=== PATIENT | male | born 1940 | race Caucasian/White ===

== ENCOUNTER 2018-02-14 20:34 | Inpatient (IN) ==
[2018-02-14] MEDS ORDERED: 0.9 % Sodium Chloride 1,000 ML IVC ONE ×2 (20:49→22:02)
[2018-02-14] MEDS ORDERED: cefTRIAXone 1,000 MG in Water for inj. (sterile) 20 ML 10 ML IVP ONE (20:49)
--- NOTE | 2018-02-14 21:02 | Emergency Department Note ---
Disposition Clinical Impression: Sepsis, Elevated lactic acid level, Fall, UTI (urinary tract infection) Disposition: Admitted As Inpatient Condition: Fair Time of Disposition: 23:44 General Adult HPI - General Chief complaint: ED Fall Stated complaint: Fall/ Incontinent Time Seen by Provider: 02/14/18 20:44 Source: patient, family Limitations: no limitations Nursing Notes Reviewed: Yes Vital Signs Reviewed: Yes - History of Present Illness HPI Narrative: 77-year-old male presents from home with and family bedside for evaluation of multiple complaints. He has been feeling unwell today and had weakness in his legs causing him to slowly fall to her knee. He did not hit his head and did not lose consciousness. He was incontinent of urine and he has not had a bowel movement today. He did take a laxative yesterday with no improvement in symptoms. Patient is a history of prostate cancer with metastasis. 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 This was surgically removed and he has recovered lower extremity function. His current baseline is that he is not currently incontinent of bowel or bladder. No abdominal surgical history. ROS: Positive: As above Negative for fever, chills, nausea, vomiting, chest pains, palpitations, shortness of breath, abdominal pain, lower extremity numbness or tingling, saddle anesthesia Pain Scale: 8 - Related Data Home Medications Medication Instructions Recorded Confirmed Tiotropium [Spiriva] 18 mcg IH DAILY 02/15/16 02/15/18 Calcium Carbonate/Vitamin D3 1 tab PO DAILY 02/15/18 02/15/18 [Calcium 600-Vit D3 800 Tablet] Centrum Silver Tablet 1 tab PO DAILY 02/15/18 02/15/18 DULoxetine [Cymbalta] 30 mg PO DAILY 02/15/18 02/15/18 Gabapentin [Neurontin] 100 mg PO TID 02/15/18 02/15/18 OxyCODONE Immed Rel [Roxicodone 10 10 mg PO Q6H PRN 02/15/18 02/15/18 MG] Patient Taking Own Medication 02/15/18 RX: Triamterene/HCTZ 37.5/25mg 1 tab PO DAILY 02/15/18 02/15/18 [Dyazide] RX: predniSONE [PredniSONE] 5 mg PO BID 02/15/18 02/15/18 Tamsulosin HCl [Flomax] 0.4 mg PO DAILY 02/15/18 02/15/18 Allergies Allergy/AdvReac Type Severity Reaction Status Date / Time No Known Allergies Allergy Verified 02/15/16 10:07 All systems ED: reviewed and negative except as stated. Review of Systems: As Per HPI Past Medical History - Past Medical History Medical history: Reports: cancer, CHF, COPD, coronary artery disease, hyperlipidemia, hypertension, kidney stones, myocardial infarction Surgical history: Reports: other Psychiatric history: Reports: no psych history - Social History Smoking Status: Former smoker Alcohol use: Reports: none Drug use: Reports: none Physical Exam Vital Signs Reviewed General: Patient is alert, oriented, and in no acute distress. Patient smells of stale urine. Head: atraumatic, normocephalic Eye: normal appearance,no scleral icterus, no conjunctival injection ENT: mucous membranes moist, normal external ear exam Neck: normal inspection, trachea midline, full ROM Chest: normal inspection, symmetric chest rise Respiratory: Good respiratory effort. Bilateral breath sounds are clear without wheezing, crackles, or rhonchi. Cardiovascular: Regular rate and rhythm. No clicks, rubs, gallops, or murmors. Normal heart sounds. Abdomen: Bowel sounds present normoactive. Abdomen is soft, nondistended, and nontender. No guarding or rebound. Musculoskeletal: Spontaneously moving all extremities. Skin: warm, dry, intact. Neuro: GCS 15. No focal neurologic deficits observed. Psych: Patient's affect is appropriate for situation. - General Limitations: no limitations General appearance: alert, in no apparent distress Course Course Narrative: Concern the is patient septic - tachycardic, elevated lactate. He is tachycardic and hypotensive. Sepsis workup initiated. We will begin empiric Rocephin against presumed UTI. Patient's heart rate has improved. I cannot attribute this to IV fluids as his heart rate was normal other tachycardic just prior to beginning his first liter bolus. Patient's blood pressure also improved at that time. Even so, given his normal renal function and elevated lactic acid of 5.1 we will provide 2 L of IV fluids. Given his age and cardiac history, we will monitor pulmonary status. Urinalysis is concerning for UTI. Culture is pending. Blood cultures drawn. E mpiric Rocephin provided. The patient does have a history of metastatic prostate cancer, he is not currently undergoing chemotherapy or radiation therapy. He is undergoing hormone therapy which the family describes as medication to remove testosterone as well as continued and continuous prednisone. His abdominal exam is unremarkable. He is no history of abdominal surgeries. Though he notes hard bowel movements, he does have bowel movements and is passing flatus. Because of this, have held on CT abdomen and pelvis at this time. I discussed the above with the patient and family bedside. The patient does not want to be admitted, family and myself been able to convince him to accept admi ssion. I discussed the above with the admitting hospitalist, Dr. Segura, who agrees to accept the patient for continued evaluation monitoring of sepsis from urinary source. Vital Signs Temperature 97.9 F 02/14/18 20:40 Pulse Rate 132 02/14/18 20:40 Respiratory Rate 16 02/14/18 20:40 Blood Pressure 96/67 02/14/18 20:40 O2 Sat by Pulse Oximetry 92 02/14/18 20:40 Temperature 97.9 F 02/14/18 20:57 Pulse Rate 99 02/14/18 23:02 Respiratory Rate 18 02/14/18 23:02 Blood Pressure 104/76 02/14/18 23:02 O2 Sat by Pulse Oximetry 95 02/14/18 23:02 Oxygen Delivery Oxygen Delivery Nasal Cannula Medical Decision Making - Lab Data Result diagrams: 02/14/18 21:04 02/14/18 21:04 Lab Results 02/14/18 02/14/18 02/14/18 Range/Units 21:04 21:04 21:04 WBC 11.0 (4.3-11.1) K/mcL RBC 3.58 L (4.19-5.50) M/mcL Hgb 14.0 (12.9-16.9) g/dL Hct 40.5 (37.5-50.1) % MCV 113.1 H (83.0-100.0) fL MCH 39.1 H (28.0-33.3) pg MCHC 34.6 (31.6-35.5) g/dL RDW 13.3 (11.5-14.5) % Plt Count 122 L (140-400) K/mcL MPV 10.3 (9.4-12.4) fL Immature Gran % Test Not Performed Seg Neutrophils % 82.0 % Band Neutrophils % 12.0 H (0-4) % Lymphocytes % 2.0 % Monocytes % 4.0 % Eosinophils % Test Not Performed Basophils % Test Not Performed Neutrophils # 10.3 H (1.6-8.9) K/mcL Lymphocytes # 0.2 L (0.6-4.6) K/mcL Monocytes # 0.4 (0.0-1.3) K/mcL Eosinophils # Test Not Performed Basophils # Test Not Performed Platelet Estimate Slight Decrease L (Normal) Polychromasia 1+ A (Not Present) PT 11.1 (9.4-12.1) Seconds INR 1.0 APTT 29.0 (26.0-36.0) Seconds Sodium 137 (136-145) mEq/L Potassium 4.0 (3.5-5.1) mEq/L Chloride 100 (98-107) mEq/L Carbon Dioxide 27 (23-29) mEq/L BUN 21 (8-23) mg/dL Creatinine 1.21 (0.70-1.30) mg/dL Est GFR ( Amer) > 60 (> 60) Est GFR (Non-Af Amer) 58 L (> 60) BUN/Creatinine Ratio 17 (6-26) Glucose 175 H (70-105) mg/dL Calculated Osmolality 291 (280-300) Lactic Acid (0.5-2.2) mmol/L Calcium 10.2 (8.6-10.3) mg/dL Phosphorus 4.4 (2.7-4.5) mg/dL Magnesium 2.3 (1.6-2.6) mg/dL Total Bilirubin 1.3 H (0.3-1.0) mg/dL Direct Bilirubin 0.3 H (0.0-0.2) mg/dL Indirect Bilirubin 1.0 (0.0-1.2) mg/dL AST 16 (13-39) Units/L ALT 12 (7-52) Units/L Alkaline Phosphatase 97 (34-104) Units/L Troponin I < 0.03 (< 0.04) ng/mL Serum Total Protein 7.1 (6.4-8.9) g/dL Albumin 4.2 (3.5-5.7) g/dL Globulin 2.9 (2.4-3.5) g/dL Albumin/Globulin Ratio 1.4 (1.1-2.2) Urine Color (Yellow) Urine Clarity (Clear) Urine pH (5.0-8.0) pH Units Ur Specific [place] (1.010-1.025) Urine Protein (Neg-Trace) mg/dL Urine Glucose (UA) (Normal) mg/dL Urine Ketones (Negative) mg/dL Urine Blood (Negative) Urine Nitrite (Negative) Urine Bilirubin (Negative) Urine Urobilinogen (Normal) mg/dL Ur Leukocyte Esterase (Negative) Urine Microscopic RBC (0-3) per hpf Urine Microscopic WBC (0-3) per hpf Ur Squamous Epith Cells (None-Few) per lpf Amorphous Sediment (Few) Urine Bacteria (None-Few) per hpf Hyaline Casts (None-Few) per lpf Ur Culture Indicated? (NO) 02/14/18 02/14/18 Range/Units 21:04 21:50 WBC (4.3-11.1) K/mcL RBC (4.19-5.50) M/mcL Hgb (12.9-16.9) g/dL Hct (37.5-50.1) % MCV (83.0-100.0) fL MCH (28.0-33.3) pg MCHC (31.6-35.5) g/dL RDW (11.5-14.5) % Plt Count (140-400) K/mcL MPV (9.4-12.4) fL Immature Gran % Seg Neutrophils % % Band Neutrophils % (0-4) % Lymphocytes % % Monocytes % % Eosinophils % Basophils % Neutrophils # (1.6-8.9) K/mcL Lymphocytes # (0.6-4.6) K/mcL Monocytes # (0.0-1.3) K/mcL Eosinophils # Basophils # Platelet Estimate (Normal) Polychromasia (Not Present) PT (9.4-12.1) Seconds INR APTT (26.0-36.0) Seconds Sodium (136-145) mEq/L Potassium (3.5-5.1) mEq/L Chloride (98-107) mEq/L Carbon Dioxide (23-29) mEq/L BUN (8-23) mg/dL Creatinine (0.70-1.30) mg/dL Est GFR ( Amer) (> 60) Est GFR (Non-Af Amer) (> 60) BUN/Creatinine Ratio (6-26) Glucose (70-105) mg/dL Calculated Osmolality (280-300) Lactic Acid 5.1 H* (0.5-2.2) mmol/L Calcium (8.6-10.3) mg/dL Phosphorus (2.7-4.5) mg/dL Magnesium (1.6-2.6) mg/dL Total Bilirubin (0.3-1.0) mg/dL Direct Bilirubin (0.0-0.2) mg/dL Indirect Bilirubin (0.0-1.2) mg/dL AST (13-39) Units/L ALT (7-52) Units/L Alkaline Phosphatase (34-104) Units/L Troponin I (< 0.04) ng/mL Serum Total Protein (6.4-8.9) g/dL Albumin (3.5-5.7) g/dL Globulin (2.4-3.5) g/dL Albumin/Globulin Ratio (1.1-2.2) Urine Color Yellow (Yellow) Urine Clarity Cloudy A (Clear) Urine pH 7.0 (5.0-8.0) pH Units Ur Specific [place] 1.013 (1.010-1.025) Urine Protein Trace (Neg-Trace) mg/dL Urine Glucose (UA) Normal (Normal) mg/dL Urine Ketones Negative (Negative) mg/dL Urine Blood Small H (Negative) Urine Nitrite Positive A (Negative) Urine Bilirubin Negative (Negative) Urine Urobilinogen Normal (Normal) mg/dL Ur Leukocyte Esterase Large H (Negative) Urine Microscopic RBC 3-5 H (0-3) per hpf Urine Microscopic WBC 50-100 H (0-3) per hpf Ur Squamous Epith Cells None Seen (None-Few) per lpf Amorphous Sediment Few (Few) Urine Bacteria Many H (None-Few) per hpf Hyaline Casts None Seen (None-Few) per lpf Ur Culture Indicated? YES A (NO) Critical Care Time Critical Care Time: Yes Total Critical Care Time: 35 Attestation: hypotension, tachycardia, fluid rescuscitation given; Attestation Statement - Attestation Attestation: Dr. Caballero note: Patient was seen in conjunction with resident Dr. Leal. Please see his charting for complete documentation. Assessment [id number] time with the patient and agree with patient's treatment and disposition. Progressive weakness for 2-3 days; End stage /metastatic prostate CA; labs / urine reviewed; Hypotension anad elevated HR resolved prior to admission s/p IV fluid resuscitation; iv abx given; lactic acid level noted; urinary retention resolved s/p boyd
[2018-02-14 21:23] LABS: Hematocrit 40.5 % (37.5-50.1); Mean Corpuscular HGB Conc 34.6 g/dL (31.6-35.5); Mean Corpuscular Hemoglobin 39.1 pg (28.0-33.3); Mean Corpuscular Volume 113.1 fL (83.0-100.0); Mean Platelet Volume 10.3 fL (9.4-12.4); Monocytes # 0.4 K/mcL (0.0-1.3); Platelet Count 122 K/mcL (140-400); Red Blood Count 3.58 M/mcL (4.19-5.50); Red Cell Distribution Width 13.3 % (11.5-14.5)
[2018-02-14 21:32] LABS: Prothrombin Time 11.1 Seconds (9.4-12.1)
[2018-02-14 21:45] LABS: Alanine Aminotransferase 12 Units/L (7-52); Albumin 4.2 g/dL (3.5-5.7); Albumin/Globulin Ratio 1.4 (1.1-2.2); Alkaline Phosphatase 97 Units/L (34-104); Aspartate Amino Transferase 16 Units/L (13-39); BUN/Creatinine Ratio 17 (6-26); Bilirubin,Direct 0.3 mg/dL (0.0-0.2); Bilirubin,Total 1.3 mg/dL (0.3-1.0); Blood Urea Nitrogen 21 mg/dL (8-23); Calcium 10.2 mg/dL (8.6-10.3); Carbon Dioxide 27 mEq/L (23-29); Chloride 100 mEq/L (98-107); Globulin 2.9 g/dL (2.4-3.5); Glucose 175 mg/dL (70-105); Magnesium 2.3 mg/dL (1.6-2.6); Osmolality,Calculated 291 (280-300); Phosphorous 4.4 mg/dL (2.7-4.5); Sodium 137 mEq/L (136-145); Total Protein 7.1 g/dL (6.4-8.9); Troponin I < 0.03 ng/mL (< 0.04); eGFR For Non-African Americans 58 (> 60)
[2018-02-14 21:59] LABS: Bilirubin,Urine Negative (Negative); Blood,Urine Small (Negative); Clarity,Urine Cloudy (Clear); Color,Urine Yellow (Yellow); Glucose,Urine (UA) Normal (Normal); Ketones,Urine Negative (Negative); Leukocyte Esterase,Urine Large (Negative); Nitrite,Urine Positive (Negative); Protein,Urine Trace mg/dL (Neg-Trace); Specific Gravity,Urine 1.013 (1.010-1.025); Urobilinogen,Urine Normal (Normal)
[2018-02-14 22:01] LABS: Bacteria,Urine Many per hpf (None-Few); Hyaline Casts,Urine None Seen per lpf (None-Few); Squamous Epithelial Cell,Urine None Seen per lpf (None-Few); WBC,Urine 50-100 per hpf (0-3)
[2018-02-14 22:23] LABS: Lymphocytes # 0.2 K/mcL (0.6-4.6); Neutrophils # 10.3 K/mcL (1.6-8.9); Platelet Estimate Slight Decrease (Normal); Polychromasia 1+ (Not Present)
[2018-02-14 22:40] LABS: Amorphous Sediment,Urine Few (Few)
--- NOTE | 2018-02-14 23:38 | Internal Med History&Physical ---
Date of Encounter: 02/15/18 Time of Encounter: 23:38 Internal Medicine - H&P: HPI Chief complaint: weakness History of present illness: Siva Dockery is a 76-year-old male with an extensive smoking history, COPD and has prostate cancer with osseous metastases resulting in lower extremity paralysis due to cord compression that was subsequently surgically r esected with recuperation of his motor function currently on androgen deprivation therapy. He is brought in today by family with a complaint of weakness. He states that he was using his walker to the bathroom and he felt his legs become weak so he supported himself and slowly made his way down to the floor. He did not hit his head or lose consciousness is any time. He denies having fever or chills but does complain of dysuria over this past week. On arrival to the ER he was borderline hypotensive and tachycardic with adequate response to fluid resuscitation. He was also seen to have a lactate level of 5.1. His UA showed positive nitrites and large leukocyte esterase with 50-100 white blood cells and bacteria seen on microscopy. He is now admitted for further care. At this time he reports feeling much better than upon initial arrival. He does complain of abdominal bloating and distention that his son stating that he has not had an adequate bowel movement in 5 days responding p oorly to [id number] laxatives and suppositories. Past Med Surg Social Fam HX - Past Medical History Medical history: cancer, CHF, COPD, coronary artery disease, hyperlipidemia, hypertension, kidney stones, myocardial infarction Psychiatric history: no psych history - Past Surgical History Surgical History: other Additional surgical history: heart cath - Social History Smoking Status: Former smoker Alcohol use: none Drug use: none - Family History Mother Name: steven charlton Living Status: Hx Family Cancer: No (throat, breast) Internal Medicine - H&P: Meds Tiotropium [Spiriva] 18 mcg IH DAILY 02/15/16 [History] DULoxetine [Cymbalta] 30 mg PO DAILY 02/15/18 [History] Tamsulosin HCl [Flomax] 0.4 mg PO DAILY 02/15/18 [History] Allergy/AdvReac Type Severity Reaction Status Date / Time No Known Allergies Allergy Verified 02/15/16 10:07 All Systems PM: A 10-system review of systems was performed and is negative for pertinent findings except as documented above in the HPI. - Constitutional Vitals: Temp Pulse Resp BP Pulse Ox 97.9 F 99 18 104/76 95 02/14/18 20:57 02/14/18 23:02 02/14/18 23:02 02/14/18 23:02 02/14/18 23:02 Exam: Vitals: Reviewed General: Well-developed and well-appearing in no acute distress. Skin: Warm and supple with a large ecchymotic lesion noted on the lateral aspect of his right arm. HEENT: Moist mucous membranes. No conjunctivae pallor. Neck: No lymphadenopathy. No JVD. No carotid bruits. No palpable thyroid. Chest: Normal thoracic expansion. Wheezing in both lung jimenez. Heart: Normal S1 & S2; rhythmic. No rubs or murmurs. Abdomen: Distended, soft and non-tender to palpation. No peritoneal reaction. Extremities: No clubbing, cyanosis or edema. No calf tenderness. Normal distal pulses. Neurological: Awake, alert and oriented to person, place and time. No focal def icits. Psych: Affect appropriate. Internal Med - H&P Results - Labs CBC & Chem 7: 02/14/18 21:04 02/14/18 21:04 Labs: Short CBC 02/14/18 Range/Units 21:04 WBC 11.0 (4.3-11.1) K/mcL Hgb 14.0 (12.9-16.9) g/dL Hct 40.5 (37.5-50.1) % Plt Count 122 L (140-400) K/mcL Neutrophils # 10.3 H (1.6-8.9) K/mcL BMP 02/14/18 21:04 Sodium 137 Potassium 4.0 Chloride 100 Carbon Dioxide 27 BUN 21 Creatinine 1.21 Glucose 175 H Calcium 10.2 Cardiac Enzymes 02/14/18 Range/Units 21:04 Troponin I < 0.03 (< 0.04) ng/mL Liver Function 02/14/18 Range/Units 21:04 Total Bilirubin 1.3 H (0.3-1.0) mg/dL Direct Bilirubin 0.3 H (0.0-0.2) mg/dL AST 16 (13-39) Units/L ALT 12 (7-52) Units/L Alkaline Phosphatase 97 (34-104) Units/L Albumin 4.2 (3.5-5.7) g/dL Urine 02/14/18 Range/Units 21:50 Urine Color Yellow (Yellow) Urine Clarity Cloudy A (Clear) Urine pH 7.0 (5.0-8.0) pH Units Ur Specific [place] 1.013 (1.010-1.025) Urine Protein Trace (Neg-Trace) mg/dL Urine Glucose (UA) Normal (Normal) mg/dL - Impressions ITS Impressions Chest X-Ray 02/14/18 20:50 IMPRESSION: 1. No focal consolidation. 2. 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 D/ / Omar Conner / Omar Conner Interpreting Provider: Omar Conner Head CT 02/14/18 20:50 IMPRESSION: No acute intracranial abnormality. Senescent changes including chronic microvascular change. D/ / India Boone MD / India Boone MD Interpreting Provider: India Boone MD - Assessment and plan (1) UTI (urinary tract infection) Current Visit: Yes Status: Acute Assessment and plan: No prior microbiology here. No suggestion of prior MDR organisms therefore continuing ceftriaxone 1gr daily for now is adequate pending finalization of culture. CT imaging to be done for constipation will also visualize system for any new anomalies. Qualifiers: Urinary tract infection type: site unspecified Hematuria presence: with hematuria Qualified Code(s): N39.0 - Urinary tract infection, site not specified; R31.9 - Hematuria, unspecified (2) Severe sepsis Current Visit: Yes Status: Acute Assessment and plan: As evidenced by hypotension, tachycardia and lactic acidosis. Has improved. Will continue fluid resuscitation. Abx as indicated above. (3) Prostate cancer metastatic to bone Current Visit: Yes Status: Chronic Assessment and plan: Will continue to follow with oncology. Therapy to be confirmed and continued while hospitalized. Notable sclerotic lesions to bone. (4) COPD (chronic obstructive pulmonary disease) Current Visit: Yes Status: Acute Assessment and plan: Currently wheezy. Will administer duonebs tonight then continue nessa prn plus daily laba/ics. Qualifiers: COPD type: emphysema Emphysema type: unspecified Qualified Code(s): J43.9 - Emphysema, unspecified (5) Constipation Current Visit: Yes Status: Acute Assessment and plan: His abdomen is significantly distended and tympanic to percussion. Will obtain a CT of his abdomen to rule out obstruction prior to giving laxative agents. Qualifiers: Constipation type: unspecified constipation type Qualified Code(s): K59.00 - Constipation, unspecified - Time Spent With Patient Total time spent is greater than 50% in coordination of care (as documented) at patient's floor/unit and/or counseling patient: Greater than 35 minutes
[2018-02-15] MEDS: *HR* Heparin 5,000 UNIT/ML VIAL SQ SCH ×3 (02:38→17:00)
[2018-02-15] MEDS: 0.9 % Sodium Chloride 1,000 ML IVC SCH ×2 (02:38→14:15)
[2018-02-15] MEDS: Ipratropium/Albuterol Neb 3 ML IH SCH ×2 (03:10→03:17)
[2018-02-15 04:35] LABS: Basophils % 0.1 %; Immature Granulocytes % 0.4 % (0-4); Red Cell Distribution Width 13.6 % (11.5-14.5); Segmented Neutrophils % 86.7 %
[2018-02-15 04:37] LABS: Eosinophils # 0.1 K/mcL (0.0-0.6); Eosinophils % 0.9 %; Hemoglobin 12.1 g/dL (12.9-16.9); Immature Platelets 3.4 % (1.1-6.1); Lymphocytes # 0.3 K/mcL (0.6-4.6); Lymphocytes % 3.2 %; Mean Corpuscular HGB Conc 33.6 g/dL (31.6-35.5); Mean Corpuscular Hemoglobin 38.9 pg (28.0-33.3); Mean Corpuscular Volume 115.8 fL (83.0-100.0); Mean Platelet Volume 10.1 fL (9.4-12.4); Monocytes # 0.7 K/mcL (0.0-1.3); Monocytes % 8.7 %; Platelet Count 105 K/mcL (140-400); Red Blood Count 3.11 M/mcL (4.19-5.50)
[2018-02-15 04:46] LABS: Neutrophils # 6.9 K/mcL (1.6-8.9)
[2018-02-15 04:55] LABS: BUN/Creatinine Ratio 19 (6-26); Blood Urea Nitrogen 20 mg/dL (8-23); Calcium 8.7 mg/dL (8.6-10.3); Carbon Dioxide 26 mEq/L (23-29); Chloride 106 mEq/L (98-107); Glucose 133 mg/dL (70-105); Osmolality,Calculated 295 (280-300); Potassium 3.8 mEq/L (3.5-5.1); Sodium 140 mEq/L (136-145); eGFR For Non-African Americans > 60 (> 60)
[2018-02-15 05:10] LABS: Platelet Estimate Decreased (Normal)
[2018-02-15] MEDS: Tiotropium 18 MCG inhalation IH SCH (07:48)
[2018-02-15] MEDS: Gabapentin 100 MG CAPSULE PO SCH ×3 (09:59→22:02)
[2018-02-15] MEDS: cefTRIAXone 1,000 MG in Water for inj. (sterile) 20 ML 10 ML IVPB SCH (10:00)
--- NOTE | 2018-02-15 13:28 | Internal Med Progress Note ---
Hospitalist Progress Note - Encounter Date of Encounter: 02/15/18 Time of Encounter: 13:26 - Subjective Interval History: I have seen and evaluated the patient at bedside. Patient hard hearing. Denies nausea, or vomiting but reports abdominal discomfort. reports improvement in the weakness of the lower extr. denies shortness of breath. - Exam Vitals: Temp Pulse Resp BP Pulse Ox 99.7 F H 87 16 106/69 93 02/15/18 10:26 02/15/18 10:26 02/15/18 10:26 02/15/18 10:02/15/18 10:26 Exam: Vitals: Reviewed General: Well-developed and well-appearing. In mild distress due to abdominal discomfort. Skin: Warm and supple with a large ecchymotic lesion noted on the lateral aspect of his right arm. Chest: Normal thoracic expansion. CTA b/l, no wheezing, rales or crackles. Heart: Normal S1 & S2; rhythmic. No rubs or murmurs. Abdomen: Distended, soft and non-tender to palpation. Extremities: No edema. Neurological: Awake, alert and oriented to person, place and time. No focal deficits. Psych: Affect appropriate. - Assessment and Plan (1) UTI (urinary tract infection) Current Visit: Yes Status: Acute Assessment and Plan: Urine culture has been sent. blood culture: no growth. pending final report lactic acid wnl. continue ceftriaxone 1gm/IV daily. will start 0.9NS@60mls/hr BP remain in the low 100s. (2) Severe sepsis Current Visit: Yes Status: Resolved Assessment and Plan: sepsis on presentation resolved. (3) Prostate cancer metastatic to bone Current Visit: Yes Status: Chronic Assessment and Plan: IMPRESSION: Significant progression and worsening of multiple sclerotic bone lesions over the last 11 months most compatible with progression of metastatic bone disease-possibly prostate. outpatient follow up at [facility] in [place] continue tamsulosin 0.4mg/PO daily (4) COPD (chronic obstructive pulmonary disease) Current Visit: Yes Status: Chronic Assessment and Plan: No on acute exacerbation. chest is clear to auscultation b/l. started on bronchodilators Q4RT PRN continue spiriva. (5) Constipation Current Visit: Yes Status: Acute Assessment and Plan: CT/CT abd pelvis wo no iv no oral: Moderate constipation within the rectosigmoid colon-possible mild fecal impaction. Mild diverticulosis of the distal colon without evidence for diverticulitis. Plan started on lactulose 20mg/PO BID DVT Prophylaxis: On heparin SubQ - Summary of Assessment and Plan Summary of Assessment and Plan: Patient to remain in the hospital due to resolving sepsis, due to UTI on IV antibiotics. Potential dc in the next 24-48 hours. - Time Spent with Patient Total time spent is greater than 50% in coordination of care (as documented) at patient's floor/unit and/or counseling patient: Greater than 35 minutes (48) Plan of Care Discussed with: patient (his son at bedside and the nurse.) Internal Medicine: Result - Labs CBC & Chem 7: 02/15/18 04:22 02/15/18 04:22 Labs: Short CBC 02/14/18 02/15/18 Range/Units 21:04 04:22 WBC 11.0 7.9 (4.3-11.1) K/mcL Hgb 14.0 12.1 L D (12.9-16.9) g/dL Hct 40.5 36.0 L (37.5-50.1) % Plt Count 122 L 105 L (140-400) K/mcL Neutrophils # 10.3 H 6.9 (1.6-8.9) K/mcL BMP 02/14/18 02/15/18 21:04 04:22 Sodium 137 140 Potassium 4.0 3.8 Chloride 100 106 Carbon Dioxide 27 26 BUN 21 20 Creatinine 1.21 1.06 Glucose 175 H 133 H Calcium 10.2 8.7 Cardiac Enzymes 02/14/18 Range/Units 21:04 Troponin I < 0.03 (< 0.04) ng/mL Liver Function 02/14/18 Range/Units 21:04 Total Bilirubin 1.3 H (0.3-1.0) mg/dL Direct Bilirubin 0.3 H (0.0-0.2) mg/dL AST 16 (13-39) Units/L ALT 12 (7-52) Units/L Alkaline Phosphatase 97 (34-104) Units/L Albumin 4.2 (3.5-5.7) g/dL Urine 02/14/18 Range/Units 21:50 Urine Color Yellow (Yellow) Urine Clarity Cloudy A (Clear) Urine pH 7.0 (5.0-8.0) pH Units Ur Specific [place] 1.013 (1.010-1.025) Urine Protein Trace (Neg-Trace) mg/dL Urine Glucose (UA) Normal (Normal) mg/dL - ABG Interpretation ABG results: PT/INR, D-dimer PT 11.1 Seconds (9.4-12.1) 02/14/18 21:04 - Impressions Impressions Chest X-Ray 02/14/18 20:50 IMPRESSION: 1. No focal consolidation. 2. 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 D/ / Omar Conner / Omar Conner Interpreting Provider: Omar Conner Head CT 02/14/18 20:50 IMPRESSION: No acute intracranial abnormality. Senescent changes including chronic microvascular change. D/ / India Boone MD / India Boone MD Interpreting Provider: India Boone MD Abdomen/Pelvis CT 02/15/18 08:00 IMPRESSION: Significant progression and worsening of multiple sclerotic bone lesions over the last 11 months most compatible with progression of metastatic bone disease-possibly prostate. Moderate constipation within the rectosigmoid colon-possible mild fecal impaction. Mild diverticulosis of the distal colon without evidence for diverticulitis. Cholelithiasis without definite evidence for cholecystitis. New 4.4 cm fat containing right inguinal hernia. Multiple renal cortical lesions. Most if not all likely represent cyst or hyperdense cyst. One indeterminate 11 mm lesion mid pole left kidney could potentially represent solid small cortical tumor. Continued follow-up recommended. Moderate to large nonobstructing right renal calculi. There is a 3.6 cm infrarenal abdominal aortic [id number] as discussed below. 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 Mild posterior bibasilar airspace opacity may represent atelectasis but cannot exclude minimal pneumonia. RECOMMENDATIONS: Managing Abdominal Aortic Aneurysms 2.6-2.9 cm: Every 5 years* 3.0-3.4 cm: Every 3 years. 3.5-3.9 cm: Every 1 year. 4.0-4.4 cm: Every 1 year. Recommend vascular consultation. 4.5-5.4 cm: Every 6 months. Recommend vascular consultation. Greater than or equal to 5.5 cm: Referral to vascular surgeon. *For abdominal aortas with maximum diameter of 2.6-2.9 cm meeting criteria for AAA (>50% of proximal normal segment). Reference: J Vasc Surg. 2009 Nov;50(4 Suppl):S2-49 D/ / 02/15/2018 09:39:05 Brandon Skinner MD / Namita Flores Interpreting Provider: Brandon Skinner MD Consult Discharge Plan - Plan Referrals: NONE,PCP [Primary Care Provider] - (1) UTI (urinary tract infection) Qualifiers: Urinary tract infection type: site unspecified Hematuria presence: with hematuria Qualified Code(s): N39.0 - Urinary tract infection, site not specified; R31.9 - Hematuria, unspecified (4) COPD (chronic obstructive pulmonary disease) Qualifiers: COPD type: emphysema Emphysema type: unspecified Qualified Code(s): J43.9 - Emphysema, unspecified (5) Constipation Qualifiers: Constipation type: unspecified constipation type Qualified Code(s): K59.00 - Constipation, unspecified
[2018-02-15] MEDS ORDERED: Albuterol 2.5 MG/3 ML NEBULIZER IH PRN (13:30)
[2018-02-15] MEDS: Lactulose Oral Soln 20 GM/30 ML UDC PO SCH ×2 (14:14→22:02)
[2018-02-15] MEDS: Lidocaine 4% CREAM (LMX) 5 GM TP SCH ×2 (14:16→22:03)
--- NOTE | 2018-02-15 15:33 | Electrocardiograph Report ---
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
[2018-02-15] MEDS: predniSONE 5 MG TABLET PO SCH (17:00)
[2018-02-15 21:17] LABS: Acinetobacter baumannii by PCR Not Detected (Not Detect); Candida albicans by PCR Not Detected (Not Detect); Candida glabrata by PCR Not Detected (Not Detect); Candida krusei by PCR Not Detected (Not Detect); Candida parapsilosis by PCR Not Detected (Not Detect); Candida tropicalis by PCR Not Detected (Not Detect); Enterobacter cloacae Cmplx PCR Not Detected (Not Detect); Enterobacteriaceae by PCR Not Detected (Not Detect); Enterococcus by PCR Not Detected (Not Detect); Escherichia coli by PCR Not Detected (Not Detect); Klebsiella oxytoca by PCR Not Detected (Not Detect); Klebsiella pneumoniae by PCR Not Detected (Not Detect); Proteus by PCR Not Detected (Not Detect); Pseudomonas aeruginosa by PCR Not Detected (Not Detect); Serratia marcescens by PCR Not Detected (Not Detect); Staphylococcus aureus by PCR Not Detected (Not Detect); Staphylococcus by PCR DETECTED (Not Detect); Streptococcus agalactiae(B)PCR Not Detected (Not Detect); Streptococcus by PCR Not Detected (Not Detect); Streptococcus pneumoniae PCR Not Detected (Not Detect); Streptococcus pyogenes (A) PCR Not Detected (Not Detect); mecA Methicillin-Resist Gene Not Detected (Not Detect)
[2018-02-16] MEDS: 0.9 % Sodium Chloride 1,000 ML IVC SCH ×3 (01:18→23:18)
[2018-02-16] MEDS: *HR* Heparin 5,000 UNIT/ML VIAL SQ SCH ×3 (01:20→16:55)
[2018-02-16] MEDS: Lactulose Oral Soln 20 GM/30 ML UDC PO SCH ×2 (07:18→22:42)
[2018-02-16] MEDS: Gabapentin 100 MG CAPSULE PO SCH ×3 (07:39→22:01)
[2018-02-16] MEDS: Cholecalciferol (D-3) 1,000 UNIT TABLET PO SCH (07:39)
[2018-02-16] MEDS: cefTRIAXone 1,000 MG in Water for inj. (sterile) 20 ML 10 ML IVPB SCH (07:40)
[2018-02-16] MEDS: ABIRATERONE ACETATE PO SCH (07:41)
[2018-02-16] MEDS: predniSONE 5 MG TABLET PO SCH ×2 (07:42→16:55)
[2018-02-16] MEDS: Lidocaine 4% CREAM (LMX) 5 GM TP SCH ×2 (07:42→22:01)
[2018-02-16] MEDS: Tiotropium 18 MCG inhalation IH SCH (07:48)
--- NOTE | 2018-02-16 18:00 | Internal Med Progress Note ---
Hospitalist Progress Note - Encounter Date of Encounter: 02/16/18 Time of Encounter: 11:00 - Subjective Interval History: Patient with past medical history significant for metastatic prostate cancer to the bone who presented with fall due to weakness secondary to UTI. Family who is at bedside reports patient has improved dramatically over the last couple days with treatment of IV antibiotics. Patient to have a voiding trial today in addition to PT OT for home safety. - Exam Vitals: Temp Pulse Resp BP Pulse Ox 98.5 F 85 16 119/74 95 02/16/18 16:00 02/16/18 16:00 02/16/18 16:00 02/16/18 16:00 02/16/18 16:00 Exam: Gen.: Nonacute distress, alert and oriented 3 ENT: Mucosal membranes moist Respiratory: Lungs are clear to auscultation bilaterally without any wheezing rhonchi or rales Cardiovascular: Normal S1 and S2 regular rate rhythm no murmurs rubs or gallops Abdomen: Soft, nontender and nondistended with positive bowel sounds Extremities: No lower extremity edema Skin: Normal color - Assessment and Plan (1) UTI (urinary tract infection) Current Visit: Yes Status: Acute Assessment and Plan: Patient found to have gram-negative rods on Gram stain; urine cultures pending Continue IV ceftriaxone (2) Severe sepsis Current Visit: Yes Status: Resolved Assessment and Plan: Resolved; secondary to above (3) Urinary retention due to benign prostatic hyperplasia Current Visit: Yes Status: Acute Assessment and Plan: Patient to have voiding trial today for Casarez catheter removal (4) Prostate cancer metastatic to bone Current Visit: Yes Status: Chronic Assessment and Plan: Patient on imaging found to have Significant progression and worsening of multiple sclerotic bone lesions over the last 11 months most compatible with progression of metastatic bone disease-possibly prostate. outpatient follow up at [facility] in [place] continue tamsulosin 0.4mg/PO daily (5) COPD (chronic obstructive pulmonary disease) Current Visit: Yes Status: Chronic Assessment and Plan: Continue bronchodilators Q4RT PRN (6) Constipation Current Visit: Yes Status: Acute Assessment and Plan: CT of abdomen/pelvis showed constipation within the rectosigmoid colon-possible mild fecal impaction. Mild diverticulosis of the distal colon without evidence for diverticulitis. Continue lactulose 20mg/PO BID DVT Prophylaxis: On heparin SubQ - Time Spent with Patient Total time spent is greater than 50% in coordination of care (as documented) at patient's floor/unit and/or counseling patient: Internal Medicine: Result - Labs CBC & Chem 7: 02/15/18 04:22 02/15/18 04:22 - ABG Interpretation ABG results: PT/INR, D-dimer PT 11.1 Seconds (9.4-12.1) 02/14/18 21:04 Consult Discharge Plan - Plan Referrals: NONE,PCP [Primary Care Provider] - (1) UTI (urinary tract infection) Qualifiers: Urinary tract infection type: site unspecified Hematuria presence: with hematuria Qualified Code(s): N39.0 - Urinary tract infection, site not specified; R31.9 - Hematuria, unspecified (5) COPD (chronic obstructive pulmonary disease) Qualifiers: COPD type: emphysema Emphysema type: unspecified Qualified Code(s): J43.9 - Emphysema, unspecified (6) Constipation Qualifiers: Constipation type: unspecified constipation type Qualified Code(s): K59.00 - Constipation, unspecified
[2018-02-17] MEDS: *HR* Heparin 5,000 UNIT/ML VIAL SQ SCH ×3 (00:07→16:10)
[2018-02-17] MEDS: Cholecalciferol (D-3) 1,000 UNIT TABLET PO SCH (07:31)
[2018-02-17] MEDS: Gabapentin 100 MG CAPSULE PO SCH ×3 (07:31→21:56)
[2018-02-17] MEDS: cefTRIAXone 1,000 MG in Water for inj. (sterile) 20 ML 10 ML IVPB SCH (07:32)
[2018-02-17] MEDS: ABIRATERONE ACETATE PO SCH (07:33)
[2018-02-17] MEDS: Lidocaine 4% CREAM (LMX) 5 GM TP SCH ×2 (07:33→21:55)
[2018-02-17] MEDS: predniSONE 5 MG TABLET PO SCH ×2 (07:34→16:09)
[2018-02-17] MEDS: Lactulose Oral Soln 20 GM/30 ML UDC PO SCH ×2 (07:34→21:56)
[2018-02-17] MEDS: Tiotropium 18 MCG inhalation IH SCH (07:53)
[2018-02-17 08:31] LABS: Red Cell Distribution Width 13.2 % (11.5-14.5)
[2018-02-17 08:33] LABS: Basophils % 0.3 %; Hematocrit 30.6 % (37.5-50.1); Hemoglobin 10.3 g/dL (12.9-16.9); Immature Granulocytes % 0.3 % (0-4); Immature Platelets 3.9 % (1.1-6.1); Lymphocytes # 0.3 K/mcL (0.6-4.6); Lymphocytes % 10.1 %; Mean Corpuscular HGB Conc 33.7 g/dL (31.6-35.5); Mean Corpuscular Hemoglobin 37.9 pg (28.0-33.3); Mean Corpuscular Volume 112.5 fL (83.0-100.0); Mean Platelet Volume 10.4 fL (9.4-12.4); Monocytes # 0.3 K/mcL (0.0-1.3); Monocytes % 9.1 %; Neutrophils # 2.4 K/mcL (1.6-8.9); Nucleated Red Blood Cells 0.7 /100 WBC (0); Red Blood Count 2.72 M/mcL (4.19-5.50); Segmented Neutrophils % 79.2 %
[2018-02-17 08:50] LABS: BUN/Creatinine Ratio 16 (6-26); Blood Urea Nitrogen 13 mg/dL (8-23); Calcium 8.5 mg/dL (8.6-10.3); Carbon Dioxide 27 mEq/L (23-29); Chloride 111 mEq/L (98-107); Glucose 104 mg/dL (70-105); Osmolality,Calculated 296 (280-300); Potassium 2.9 mEq/L (3.5-5.1); Sodium 143 mEq/L (136-145); eGFR For Non-African Americans > 60 (> 60)
[2018-02-17 08:55] LABS: Platelet Count 99 K/mcL (140-400)
[2018-02-17] MEDS ORDERED: Chloraseptic Spray 177 ML BOTTLE MM PRN (16:22)
[2018-02-17] MEDS: 0.9 % Sodium Chloride 1,000 ML IVC SCH (18:08)
--- NOTE | 2018-02-17 19:44 | Internal Med Progress Note ---
Hospitalist Progress Note - Encounter Date of Encounter: 02/17/18 Time of Encounter: 11:00 - Subjective Interval History: Patient with past medical history significant for metastatic prostate cancer to the bone who presented with fall due to weakness secondary to UTI. Patient almost to baseline with treatment of UTI with IV ceftriaxone. Patient however found to be hypokalemic this morning with potassium 2.9 and will need IV potassium replacements. - Exam Vitals: Temp Pulse Resp BP Pulse Ox 98.4 F 71 16 99/63 94 02/17/18 18:49 02/17/18 18:49 02/17/18 18:49 02/17/18 18:49 02/17/18 18:49 Exam: Gen.: Nonacute distress, alert and oriented 3 ENT: Mucosal membranes moist Respiratory: Lungs are clear to auscultation bilaterally without any wheezing rhonchi or rales Cardiovascular: Normal S1 and S2 regular rate rhythm no murmurs rubs or gallops Abdomen: Soft, nontender and nondistended with positive bowel sounds Extremities: No lower extremity edema Skin: Normal color - Assessment and Plan (1) Hypokalemia Current Visit: Yes Status: Acute Assessment and Plan: Patient found to have a potassium 2.9 this morning and will require IV potassium replacements. Will monitor overnight. (2) UTI (urinary tract infection) Current Visit: Yes Status: Acute Assessment and Plan: Patient found to have gram-negative rods on Gram stain; urine cultures pending Continue IV ceftriaxone (3) Severe sepsis Current Visit: Yes Status: Resolved Assessment and Plan: Resolved; secondary to above (4) Urinary retention due to benign prostatic hyperplasia Current Visit: Yes Status: Acute Assessment and Plan: Patient for reading without difficulty after Casarez catheter removed reports that patient was told to straight catheter as needed at recent hospital discharge from [facility] due to urinary retention. Patient should not will need to follow-up with urology as an outpatient. (5) Prostate cancer metastatic to bone Current Visit: Yes Status: Chronic Assessment and Plan: Patient on imaging found to have Significant progression and worsening of multi ple sclerotic bone lesions over the last 11 months most compatible with progression of metastatic bone disease-possibly prostate. outpatient follow up at [facility] in [place] continue tamsulosin 0.4mg/PO daily (6) COPD (chronic obstructive pulmonary disease) Current Visit: Yes Status: Chronic Assessment and Plan: Continue bronchodilators Q4RT PRN (7) Constipation Current Visit: Yes Status: Acute Assessment and Plan: Resolved; CT of abdomen/pelvis showed constipation within the rectosigmoid colon-possible mild fecal impaction. Mild diverticulosis of the distal colon without evidence for diverticulitis. DVT Prophylaxis: On heparin SubQ - Time Spent with Patient Total time spent is greater than 50% in coordination of care (as documented) at patient's floor/unit and/or counseling patient: Internal Medicine: Result - Labs CBC & Chem 7: 02/17/18 07:50 02/17/18 07:50 Labs: Short CBC 02/17/18 Range/Units 07:50 WBC 3.0 L D (4.3-11.1) K/mcL Hgb 10.3 L D (12.9-16.9) g/dL Hct 30.6 L (37.5-50.1) % Plt Count 99 L (140-400) K/mcL Neutrophils # 2.4 (1.6-8.9) K/mcL BMP 02/17/18 07:50 Sodium 143 Potassium 2.9 L Chloride 111 H Carbon Dioxide 27 BUN 13 Creatinine 0.81 Glucose 104 Calcium 8.5 L - ABG Interpretation ABG results: PT/INR, D-dimer PT 11.1 Seconds (9.4-12.1) 02/14/18 21:04 Consult Discharge Plan - Plan Referrals: NONE,PCP [Primary Care Provider] - (2) UTI (urinary tract infection) Qualifiers: Urinary tract infection type: site unspecified Hematuria presence: with hematuria Qualified Code(s): N39.0 - Urinary tract infection, site not specified; R31.9 - Hematuria, unspecified (6) COPD (chronic obstructive pulmonary disease) Qualifiers: COPD type: emphysema Emphysema type: unspecified Qualified Code(s): J43.9 - Emphysema, unspecified (7) Constipation Qualifiers: Constipation type: unspecified constipation type Qualified Code(s): K59.00 - Constipation, unspecified
[2018-02-18] MEDS: *HR* Heparin 5,000 UNIT/ML VIAL SQ SCH ×4 (00:54→23:01)
[2018-02-18] MEDS: Tiotropium 18 MCG inhalation IH SCH (07:48)
[2018-02-18] MEDS: cefTRIAXone 1,000 MG in Water for inj. (sterile) 20 ML 10 ML IVPB SCH (09:00)
[2018-02-18] MEDS: Gabapentin 100 MG CAPSULE PO SCH ×3 (09:02→19:58)
[2018-02-18] MEDS: ABIRATERONE ACETATE PO SCH (09:02)
[2018-02-18] MEDS: Cholecalciferol (D-3) 1,000 UNIT TABLET PO SCH (09:02)
[2018-02-18] MEDS: predniSONE 5 MG TABLET PO SCH ×2 (09:02→16:35)
[2018-02-18] MEDS: Lactulose Oral Soln 20 GM/30 ML UDC PO SCH ×2 (09:06→19:58)
[2018-02-18] MEDS: Lidocaine 4% CREAM (LMX) 5 GM TP SCH ×2 (09:06→19:58)
[2018-02-18] MEDS: 0.9 % Sodium Chloride 1,000 ML IVC SCH (14:27)
[2018-02-19] MEDS: ABIRATERONE ACETATE PO SCH (09:15)
[2018-02-19] MEDS: *HR* Heparin 5,000 UNIT/ML VIAL SQ SCH (09:16)
[2018-02-19] MEDS: Cholecalciferol (D-3) 1,000 UNIT TABLET PO SCH (09:16)
[2018-02-19] MEDS: cefTRIAXone 1,000 MG in Water for inj. (sterile) 20 ML 10 ML IVPB SCH (09:17)
[2018-02-19] MEDS: predniSONE 5 MG TABLET PO SCH (09:17)
[2018-02-19] MEDS: Gabapentin 100 MG CAPSULE PO SCH (09:17)
[2018-02-19] MEDS: Lactulose Oral Soln 20 GM/30 ML UDC PO SCH (09:18)
[2018-02-19] MEDS: Lidocaine 4% CREAM (LMX) 5 GM TP SCH (09:20)
[2018-02-19] MEDS: Tiotropium 18 MCG inhalation IH SCH (09:57)
[2018-02-19 10:34] VITALS: BP 122/73
--- NOTE | 2018-02-19 10:56 | Internal Med Progress Note ---
Hospitalist Progress Note - Encounter Date of Encounter: 02/18/18 Time of Encounter: 11:00 - Subjective Interval History: Patient with past medical history significant for metastatic prostate cancer to the bone who presented with fall due to weakness secondary to UTI. Patient almost to baseline with treatment of UTI with IV ceftriaxone. Patient again found to be hypokalemic this morning with potassium 2.9 even after IV replacements yesterday; will need IV potassium replacements. - Exam Vitals: Temp Pulse Resp BP Pulse Ox 97.7 F 66 14 122/73 96 02/19/18 10:33 02/19/18 10:33 02/19/18 10:33 02/19/18 10:33 02/19/18 10:33 Exam: Gen.: Nonacute distress, alert and oriented 3 ENT: Mucosal membranes moist Respiratory: Lungs are clear to auscultation bilaterally without any wheezing rhonchi or rales Cardiovascular: Normal S1 and S2 regular rate rhythm no murmurs rubs or gallops Abdomen: Soft, nontender and nondistended with positive bowel sounds Extremities: No lower extremity edema Skin: Normal color - Assessment and Plan (1) Hypokalemia Current Visit: Yes Status: Acute Assessment and Plan: Patient again found to be hypokalemic this morning with potassium 2.9 even after IV replacements yesterday; will need IV potassium replacements. Will monitor overnight. (2) UTI (urinary tract infection) Current Visit: Yes Status: Acute Assessment and Plan: Patient found to have gram-negative rods on Gram stain; urine cultures pending Continue IV ceftriaxone (3) Severe sepsis Current Visit: Yes Status: Resolved Assessment and Plan: Resolved; secondary to above (4) Urinary retention due to benign prostatic hyperplasia Current Visit: Yes Status: Acute Assessment and Plan: Patient for reading without difficulty after Casarez catheter removed reports that patient was told to straight catheter as needed at recent hospital discharge from [facility] due to urinary retention. Patient should not will need to follow-up with urology as an outpatient. (5) Prostate cancer metastatic to bone Current Visit: Yes Status: Chronic Assessment and Plan: Patient on imaging found to have Significant progression and worsening of multiple sclerotic bone lesions over the last 11 months most compatible with progression of metastatic bone disease-possibly prostate. outpatient follow up at [facility] in [place] continue tamsulosin 0.4mg/PO daily (6) COPD (chronic obstructive pulmonary disease) Current Visit: Yes Status: Chronic Assessment and Plan: Continue bronchodilators Q4RT PRN (7) Constipation Current Visit: Yes Status: Acute Assessment and Plan: Resolved; CT of abdomen/pelvis showed constipation within the rectosigmoid colon-possible mild fecal impaction. Mild diverticulosis of the distal colon without evidence for diverti culitis. DVT Prophylaxis: On heparin SubQ - Time Spent with Patient Total time spent is greater than 50% in coordination of care (as documented) at patient's floor/unit and/or counseling patient: Internal Medicine: Result - Labs CBC & Chem 7: 02/17/18 07:50 02/18/18 22:19 Labs: BMP 02/18/18 02/18/18 02/18/18 12:52 18:31 22:19 Potassium 2.9 L 3.3 L 3.5 - ABG Interpretation ABG results: PT/INR, D-dimer PT 11.1 Seconds (9.4-12.1) 02/14/18 21:04 Consult Discharge Plan - Plan Referrals: NONE,PCP [Primary Care Provider] - (2) UTI (urinary tract infection) Qualifiers: Urinary tract infection type: site unspecified Hematuria presence: with hematuria Qualified Code(s): N39.0 - Urinary tract infection, site not specified; R31.9 - Hematuria, unspecified (6) COPD (chronic obstructive pulmonary disease) Qualifiers: COPD type: emphysema Emphysema type: unspecified Qualified Code(s): J43.9 - Emphysema, unspecified (7) Constipation Qualifiers: Constipation type: unspecified constipation type Qualified Code(s): K59.00 - Constipation, unspecified
--- NOTE | 2018-02-19 13:56 | Discharge Summary ---
- NOTES TO OUTPATIENT PROVIDER Notes to Outpatient Provider: Primary care provider to check potassium on 02/24/18 for hypokalemia management Orders not resulted at time of discharge: Pending orders 02/14/18 21:04 Culture,Blood [BC] Stat Date of Encounter: 02/19/18 Time of Encounter: 11:00 - Discharge Diagnosis (1) Hypokalemia Priority: Primary Status: Acute (2) UTI (urinary tract infection) Priority: Primary Status: Acute Qualifiers: Urinary tract infection type: site unspecified Hematuria presence: with hematuria Qualified Code(s): N39.0 - Urinary tract infection, site not specified; R31.9 - Hematuria, unspecified (3) Severe sepsis Priority: Primary Status: Resolved (4) Urinary retention due to benign prostatic hyperplasia Priority: Primary Status: Acute (5) Prostate cancer metastatic to bone Priority: Secondary Status: Chronic (6) COPD (chronic obstructive pulmonary disease) Priority: Primary Status: Chronic Qualifiers: COPD type: emphysema Emphysema type: unspecified Qualified Code(s): J43.9 - Emphysema, unspecified (7) Constipation Priority: Secondary Status: Acute Qualifiers: Constipation type: unspecified constipation type Qualified Code(s): K59.00 - Constipation, unspecified Hospital course: Patient is a 76-year-old male with past medical history significant for extensive smoking history, COPD and has prostate cancer 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 During patients hospital stay he was managed for urinary tract infection secondary to Klebsiella pneumonia with IV ceftriaxone and his symptoms improved. Patient was also found to be hypokalemia suspect secondary to diarrhea and was treated with IV potassium replacements. Patient will be sent home with a 2 week course of potassium chloride to follow-up with primary care provider for hypokalemia management. - Time Spent with Patient Total time spent providing and/or coordinating discharge services: Less than 30 minutes - Discharge Medications Prescriptions: Potassium Chloride 40 meq PO ONCE 14 Days #28 tab.er.prt Home Medications: Tiotropium [Spiriva] 18 mcg IH DAILY 02/15/16 [History] Calcium Carbonate/Vitamin D3 [Calcium 600-Vit D3 800 Tablet] 1 tab PO DAILY 02/15/18 [History] DULoxetine [Cymbalta] 30 mg PO DAILY 02/15/18 [History] Gabapentin [Neurontin] 100 mg PO TID 02/15/18 [History] Multivits,Ca,Min/Iron/FA/Lycop [Centrum Men's Tablet] 1 tab PO DAILY 02/15/18 [History] OxyCODONE Immed Rel [Roxicodone 10 MG] 10 mg PO Q6H PRN 02/15/18 [History] Tamsulosin HCl [Flomax] 0.4 mg PO DAILY 02/15/18 [History] Triamterene/HCTZ 37.5/25mg [Dyazide] 1 tab PO DAILY 02/15/18 [History] predniSONE [PredniSONE] 5 mg PO BID 02/15/18 [History] Abiraterone Acetate [Zytiga] 1,000 mg PO DAILY 02/16/18 [History] Potassium Chloride 40 meq PO ONCE 14 Days #28 tab.er.prt 02/19/18 [Rx] Allergies/Adverse Reactions: Allergy/AdvReac Type Severity Reaction Status Date / Time No Known Allergies Allergy Verified 02/15/16 10:07 Date of admission: 02/14/18 23:34 Primary care physician: PCP NONE Consults: 02/16/18 11:34 Consult to Occupational Therapy [CONS] Routine Comment: Evaluate, develop and implement POC Reason for Consult: d/c planning Does patient have active BEDREST order?: No Is patient medically & hemodynamically stable?: Yes Consult to Physical Therapy [CONS] Routine Comment: Evaluate, develop and implement POC Reason for Consult: d/c planning Does patient have active BEDREST order?: No Is patient medically & hemodynamically stable?: Yes - Constitutional Vitals: Temp Pulse Resp BP Pulse Ox 97.7 F 66 14 122/73 96 02/19/18 10:33 02/19/18 10:33 02/19/18 10:33 02/19/18 10:33 02/19/18 10:33 Exam: Gen.: Nonacute distress, alert and oriented 3 Skin: Normal color - Patient Status Disposition: Home, Self-Care Condition: Fair - Ambulatory Orders Ambulatory Orders: Potassium [CHEM] Time Frame: 02/24/18, Location: Determined By Patient - Discharge Instructions Follow Up With: NONE,PCP [Primary Care Provider] - Additional Instructions: Follow-up appointments: If there is not an appointment listed below, please call your physician and schedule a follow-up appointment. If you have congestive heart failure and your symptoms return, make an appointment with your physician. Medication List: Carry an up to date list of medications you are taking at all time. We have given you an updated medication list including any new medications that you have been prescribed. Please provide that list to your primary provider Symptoms: If your condition changes or you experience any of the following symptoms, notify your physician immediately: Unusual or worsening pain, fever, persistent nausea and vomiting, bleeding, increase in swelling (especially in your legs), sudden weight gain, extreme dizziness, chest pain, increased drainage or redness from a wound or incision. Go to the emergency department if you experience a problem with breathing. Weights: If you have a history of swelling or shortness of breath, weigh yourself daily and notify your physician if you have a weight gain of two or more pounds in one day or 5 or more pounds in a week. If you experience any of the warning signs for stroke: Sudden numbness or weakness of the face, arm or leg; especially on one side of the body, sudden confusion, trouble speaking or understanding, sudden trouble seeing in one or both eyes, sudden trouble walking, dizziness, loss of balance or coordination, sudden sever headache with no cause; Call 911 or go to the emergency room. Stroke is a medical emergency. Some risk factors for stroke: Age, cigarette smoking, diabetes, excessive alcohol consumption, family history, high blood pressure, overweight, physical inactivity, prior stroke, heart attack, diagnosis of carotid artery stenosis or other artery disease. If you smoke, STOP: Smoking or tobacco use significantly increases your risk of heart and lung disease. Your chance of disease greatly increases if you continue to smoke. For more information, call the [place] tobacco quit line for smoking cessation 0-501-MQIB-NOW ( )
== END 2018-02-19 15:25 | disposition home or self-care (01) | DRG 872 ==
LOC: 3NENU 20:34 → EMEROOARM 20:34 → 3NENU 23:19 → SUATTDRO 23:34
PROVIDERS: ADMIT Family Medicine; ATTEND Hospitalist

== ENCOUNTER 2021-07-03 16:40 | Observation (INO) ==
[2021-07-03] MEDS ORDERED: *HR* Heparin 5,000 UNIT/ML VIAL IVP ONE (17:05)
[2021-07-03] MEDS ORDERED: Isovue-370 500 ML BOTTLE IVP ONE (17:10)
[2021-07-03] MEDS ORDERED: Heparin 25,000UNIT/250ML 1/2NS 25,000 UNIT/250 ML IV.SOLN IVC SCH (17:15)
[2021-07-03] MEDS: DilTIAZem 50 MG/50 ML IV.SOLN IVC SCH ×2 (17:36→23:44)
[2021-07-03 17:42] LABS: Basophils % 0.1 %; Red Cell Distribution Width 13.4 % (11.5-14.5)
[2021-07-03 17:44] LABS: Eosinophils # 0.1 K/mcL (0.0-0.6); Eosinophils % 1.2 %; Hematocrit 35.6 % (37.5-50.1); Hemoglobin 12.3 g/dL (12.9-16.9); Immature Granulocytes % 0.5 % (0-4); Immature Platelets 5.6 % (1.1-6.1); Lymphocytes # 0.8 K/mcL (0.6-4.6); Lymphocytes % 10.9 %; Mean Corpuscular HGB Conc 34.6 g/dL (31.6-35.5); Mean Platelet Volume 10.6 fL (9.4-12.4); Monocytes # 0.8 K/mcL (0.0-1.3); Monocytes % 9.9 %; Platelet Count 101 K/mcL (140-400); Red Blood Count 3.15 M/mcL (4.19-5.50); Segmented Neutrophils % 77.4 %; White Blood Count 7.7 K/mcL (4.3-11.1)
[2021-07-03 17:49] LABS: INR 1.1; Prothrombin Time 12.5 Seconds (9.4-12.1)
[2021-07-03 17:52] LABS: Activated Partial Thrombo Time 29.9 Seconds (26.0-36.0)
[2021-07-03 18:07] LABS: BUN/Creatinine Ratio 16 (6-26); Blood Urea Nitrogen 19 mg/dL (8-23); Calcium 9.6 mg/dL (8.6-10.3); Carbon Dioxide 27 mEq/L (23-29); Chloride 105 mEq/L (98-107); Glucose 93 mg/dL (70-105); Osmolality,Calculated 290 (280-300); Potassium 3.5 mEq/L (3.5-5.1); Sodium 139 mEq/L (136-145); eGFR For African Americans > 60 (> 60); eGFR For Non-African Americans 59 (> 60)
[2021-07-03 18:30] LABS: Platelet Estimate Decreased (Normal)
[2021-07-03] MEDS ORDERED: Ondansetron 4 MG/2 ML VIAL IVP PRN (20:36)
[2021-07-03] MEDS ORDERED: Acetaminophen 325 MG TABLET PO PRN (20:36)
[2021-07-03] MEDS ORDERED: Naloxone 0.4 MG/ML INJ IVP PRN (20:36)
[2021-07-03] MEDS ORDERED: Perflutren Lipid Microsphere 1.3 ML in 0.9 % Sodium Chloride 8.7 ML IVP PRN (20:38)
[2021-07-03 20:40] LABS: Bilirubin,Urine Negative (Negative); Blood,Urine Small (Negative); Clarity,Urine Turbid (Clear); Color,Urine Yellow (Yellow); Glucose,Urine (UA) Normal (Normal); Ketones,Urine Negative (Negative); Leukocyte Esterase,Urine Large (Negative); Mucus,Urine Few per lpf (None-Few); Nitrite,Urine Positive (Negative); PH,Urine 6.5 pH Units (5.0-8.0); Protein,Urine 30 mg/dL (Neg-Trace); Specific Gravity,Urine 1.017 (1.010-1.025); Urobilinogen,Urine Normal (Normal); WBC,Urine TNTC per hpf (0-3)
[2021-07-03] MEDS ORDERED: cefTRIAXone 1,000 MG in 0.9 % Sodium Chloride 10 ML IVP SCH (21:00)
[2021-07-03 21:34] LABS: Influenza A PCR Negative (Negative); Influenza B PCR Negative (Negative); Resp. Syncytial Virus PCR Negative (Negative)
[2021-07-03 21:37] LABS: SARS-CoV-2 by PCR (In House) Negative (Negative)
[2021-07-03] MEDS ORDERED: Furosemide 40 MG/4 ML VIAL IVP ONE (22:43)
[2021-07-03] MEDS ORDERED: Levalbuterol 1 PUFF INHALER IH PRN (22:45)
[2021-07-04] MEDS ORDERED: *HR* Metoprolol 5 MG/5 ML VIAL IVP ONE (01:16)
[2021-07-04 01:50] LABS: Alanine Aminotransferase 15 Units/L (7-52); Albumin 3.9 g/dL (3.5-5.7); Albumin/Globulin Ratio 1.5 (1.1-2.2); Alkaline Phosphatase 74 Units/L (34-104); Aspartate Amino Transferase 22 Units/L (13-39); BUN/Creatinine Ratio 16 (6-26); Bilirubin,Direct 0.1 mg/dL (0.0-0.2); Bilirubin,Indirect 0.7 mg/dL (0.0-1.0); Bilirubin,Total 0.8 mg/dL (0.3-1.0); Blood Urea Nitrogen 18 mg/dL (8-23); Calcium 9.8 mg/dL (8.6-10.3); Carbon Dioxide 25 mEq/L (23-29); Chloride 105 mEq/L (98-107); Chol/HDL Ratio 3.1 (0-4.9); Cholesterol 124 mg/dL (< 200); Globulin 2.6 g/dL (2.4-3.5); Glucose 105 mg/dL (70-105); HDL Cholesterol 40 mg/dL (40-59); LDL Cholesterol,Calculated 57 mg/dL (< 100); Magnesium 1.9 mg/dL (1.6-2.6); Osmolality,Calculated 294 (280-300); Phosphorous 3.5 mg/dL (2.7-4.5); Potassium 3.5 mEq/L (3.5-5.1); Sodium 141 mEq/L (136-145); Total Protein 6.5 g/dL (6.4-8.9); Triglycerides 133 mg/dL (< 150); eGFR For African Americans > 60 (> 60); eGFR For Non-African Americans > 60 (> 60)
[2021-07-04 01:56] LABS: INR 1.1; Prothrombin Time 12.8 Seconds (9.4-12.1)
[2021-07-04 02:02] LABS: Thyroid Stimulating Hormone 2.507 mcIU/mL (0.340-5.600)
[2021-07-04] MEDS: DilTIAZem 50 MG/50 ML IV.SOLN IVC SCH ×2 (03:06→05:55)
[2021-07-04] MEDS ORDERED: DILTIAZEM IVC SCH (07:30)
[2021-07-04] MEDS ORDERED: SODIUM CHLORIDE 0.9% IVC SCH (07:30)
[2021-07-04] MEDS ORDERED: Amiodarone Premix 150 MG/100 ML BAG IVPB ONE (10:09)
[2021-07-04] MEDS ORDERED: 0.9 % Sodium Chloride 1,000 ML ONE ×2 (10:31→15:13)
[2021-07-04] MEDS ORDERED: *HR* Digoxin 0.5 MG/2 ML AMPUL IVP ONE (11:01)
[2021-07-04] MEDS ORDERED: Potassium Chloride Elixir 20 MEQ/15 ML UDC PO ONE (11:01)
[2021-07-04] MEDS ORDERED: Amiodarone Premix 360 MG/200 ML BAG IVC ONE (11:30)
[2021-07-04] MEDS ORDERED: Phenylephrine 20 MG in 0.9 % Sodium Chloride 250 ML IVC SCH (11:45)
[2021-07-04] MEDS ORDERED: Artificial Tears SOLN 15 ML BOTTLE BOTH EYES PRN (12:56)
[2021-07-04] MEDS ORDERED: Norepinephrine 4 MG/254 ML IV.SOLN IVC SCH (13:00)
[2021-07-04] MEDS ORDERED: FentaNYL (PF) 1,000 MCG/100 ML IV.SOLN IVC SCH (13:00)
[2021-07-04] MEDS ORDERED: Pantoprazole 40 MG VIAL IVP SCH (13:00)
[2021-07-04] MEDS ORDERED: Dexmedetomidine HCl 400 MCG/100 ML MLS IVC SCH (13:00)
[2021-07-04] MEDS: Albumin Human 5% 12.5 GM/250 ML IV.SOLN IVC SCH ×2 (13:04→14:01)
[2021-07-04 13:32] VITALS: TEMP 101.6
[2021-07-04 13:55] LABS: ABG Base Excess 1 mEq/L (-2 to 3); ABG HCO3 25 mEq/L (21-27); ABG Oxygen Saturation 100 % (95-98); ABG PCO2 34 mmHg (35-45); ABG PH 7.47 pH Units (7.32-7.45); ABG PO2 421 mmHg (85-104); ABG TCO2 26 mEq/L (20-26); Blood Gas Modality ASSIST CONTROL
[2021-07-04] MEDS ORDERED: Albumin Human 5% 12.5 GM/250 ML IV.SOLN ONE (14:53)
[2021-07-04] MEDS ORDERED: Albumin Human 5% 12.5 GM/250 ML IV.SOLN IVC SCH (15:00)
[2021-07-04] MEDS ORDERED: Piperacillin/Tazobactam 3.375 GM in 0.9 % Sodium Chloride Mini Bag 100 ML IVPB SCH (15:00)
[2021-07-04] MEDS ORDERED: Sodium Bicarbonate 150 MEQ in Water for inj. (sterile) 1,000 ML IVC SCH (15:09)
[2021-07-04] MEDS ORDERED: Phenylephrine 100 MG in 0.9 % Sodium Chloride 250 ML IVC SCH (15:30)
[2021-07-04] MEDS ORDERED: *HR* LORazepam 2 MG/ML VIAL IVP PRN (15:37)
[2021-07-04] MEDS ORDERED: Morphine Sulfate 2 MG/ML SYRINGE IVP PRN (15:57)
[2021-07-04] MEDS ORDERED: Artificial Tears SOLN 15 ML BOTTLE BOTH EYES SCH (16:00)
[2021-07-04] MEDS ORDERED: Vancomycin 1,250 MG/262.5 ML IV.SOLN IVPB SCH (16:00)
[2021-07-04 16:43] VITALS: BP 36/22; PULSE 101; O2SAT 46
[2021-07-04] MEDS ORDERED: *HR* Digoxin 0.5 MG/2 ML AMPUL IVP SCH (17:00)
[2021-07-04] MEDS ORDERED: *HR* Midazolam HCl 5 MG/5 ML VIAL IVP ONE (18:49)
[2021-07-04] MEDS ORDERED: *HR* Etomidate 20 MG/10 ML AMPUL IVP ONE (18:49)
[2021-07-04] MEDS ORDERED: Norepinephrine 4 MG/254 ML in 0.9% Sodium Chloride IVC ONE (18:49)
[2021-07-04] MEDS ORDERED: cefTRIAXone 1,000 MG in 0.9 % Sodium Chloride 10 ML IVP SCH (21:00)
[2021-07-04] MEDS ORDERED: Chlorhexidine Rinse 15 ML MOUTHWASH MM SCH (21:00)
[2021-07-04] MEDS ORDERED: Budesonide/Formoterol 160/4.5 1 PUFF INH IH SCH (22:00)
== END 2021-07-04 18:50 | disposition expired ==
LOC: EMEROOARM 16:40 → 3ANU 16:40 → SUATTDRO 20:27 → 3ANU 21:23 → ICNU 07-04 14:52
PROVIDERS: ADMIT Student in an Organized Health Care Education/Training Program; ATTEND Family Medicine